=== PATIENT | male | born 1985 | race Caucasian/White ===

== ENCOUNTER → 2020-05-01 | Outpatient (CLI) | payer OTHER ==
--- NOTE | 2020-05-01 13:51 | KCIC ---
Two-view chest dated 05/01/2020. No comparison available. CLINICAL INDICATION: Pain for 5 days. No known injury. FINDINGS: PA and lateral views obtained. Heart and mediastinal contours are within normal limits. Lungs are clear. No consolidation or pleural effusion. No pneumothorax. IMPRESSION: No acute findings. Electronically signed by: Dioni Ramos MD (05/01/2020 1:48 PM) [facility]
== END | disposition home or self-care (01) ==
LOC: KCIC 12:43
PROVIDERS: ATTEND Family Medicine
DX: R07.89 Other chest pain (principal)
CPT/HCPCS: 71046

== ENCOUNTER → 2020-12-07 | Outpatient (CLI) | payer OTHER ==
--- NOTE | 2020-12-07 09:49 | KCIC ---
EXAM: Left ankle, 3 views. HISTORY: Pain and swelling. COMPARISON: None. FINDINGS: 3 views of the left ankle are obtained. There is a internal fixation screw within the dista l tibial metaphysis. The ankle mortise intact. There is no osteochondral lesion. IMPRESSION: Internal fixation of the distal tibial metaphysis. No acute osseous finding. Electronically signed by: Jodi Sharif MD (12/07/2020 9:47 AM) [id number]
== END ==
LOC: KCIC 09:28
PROVIDERS: ATTEND Family Medicine
DX: M25.572 Pain in left ankle and joints of left foot (principal); Z98.890 Other specified postprocedural states
CPT/HCPCS: 73610